=== PATIENT | male | born 1990 | race Two or more races ===

== ENCOUNTER 2021-07-21 09:40 | Inpatient (IN) | payer OTHER ==
[~2021-07-21] VITALS: Ht 170.2 cm; Wt 86.4 kg
[2021-07-21 10:49] LABS: BASOPHILS % (AUTO) 0.4 % (0.0-2.0); EOSINOPHILS % (AUTO) 0.4 % (1.0-6.0); HEMATOCRIT 45.7 % (41-53); HEMOGLOBIN 15.8 g/dL (13.5-17.5); LYMPHOCYTES # (AUTO) 2.4 K/uL (1.0-4.8); LYMPHOCYTES % (AUTO) 23.2 % (22.0-44.0); MEAN CORPUSCULAR HEMOGLOBIN 30.4 pg (26.0-34.0); MEAN CORPUSCULAR HGB CONC 34.7 G/dL (31.0-37.0); MEAN CORPUSCULAR VOLUME 88 fL (80-100); MONOCYTES # (AUTO) 0.6 K/uL (0.1-1.0); MONOCYTES % (AUTO) 5.5 % (2.0-9.0); NEUTROPHILS # (AUTO) 7.2 K/uL (1.8-7.7); NEUTROPHILS % (AUTO) 70.5 % (40.0-70.0); PLATELET COUNT (AUTO) 234 K/uL (150-450); RED BLOOD CELL COUNT(AUTO) 5.21 MIL/uL (4.50-5.90); RED CELL DISTRIBUTION WIDTH 13.4 % (11.5-14.5)
[2021-07-21 10:52] LABS: COVID AG,FIA SOURCE NASOPHARYNGEAL
[2021-07-21 10:58] LABS: ANION GAP 3 mmol/L (8-16); CALCIUM, TOTAL 9.8 mg/dL (8.8-10.5); CARBON DIOXIDE 32 mmol/L (22-29); CHLORIDE 106 mmol/L (98-107); CREATININE 1.12 mg/dL (0.60-1.30); GLOMERULAR FILTR. RATE CALC > 60 mL/min (>60); GLUCOSE,RANDOM 104 mg/dL (70-110); POTASSIUM 4.9 mmol/L (3.5-5.1); SODIUM SERUM 141 mmol/L (136-145); UREA NITROGEN, BLOOD 20 mg/dL (7-18)
[2021-07-21 11:13] LABS: ALANINE AMINOTRANSFERASE 23 U/L (12-78); ALBUMIN 4.3 g/dL (3.4-5.0); ALKALINE PHOSPHATASE 88 U/L (46-116); ASPARTATE AMINOTRANSFERASE 17 U/L (15-37); BILIRUBIN,TOTAL 0.5 mg/dL (0.1-1.0); TOTAL PROTEIN, SERUM 8.4 g/dL (6.4-8.2)
[2021-07-21 11:14] LABS: ACETAMINOPHEN < 2 mcg/mL (10-30)
[2021-07-21] MEDS ORDERED: 0.9% SODIUM CHLORIDE 10 ML SYRINGE IVP PRN ×2 (11:45)
[2021-07-21] MEDS ORDERED: IPRATROPIUM BROMIDE 0.5 MG/2.5 ML NEB SOLUTION NEB PRN (11:45)
[2021-07-21] MEDS ORDERED: DOCUSATE SODIUM 100 MG CAPSULE PO PRN (11:45)
[2021-07-21] MEDS ORDERED: ACETAMINOPHEN 325 MG TABLET PO PRN (11:45)
[2021-07-21] MEDS ORDERED: ONDANSETRON HCL 4 MG/2 ML VIAL IVP PRN ×2 (11:45)
[2021-07-21] MEDS ORDERED: ALBUTEROL SULFATE 2.5 MG/0.5 ML NEB SOLUTION NEB PRN (11:45)
[2021-07-21] MEDS ORDERED: BISACODYL 10 MG RECTAL RECTAL SUPPOSITORY PR PRN (11:45)
[2021-07-21] MEDS ORDERED: MAGNESIUM HYDROXIDE SUSPENSION 30 ML UDCUP PO PRN (11:45)
[2021-07-21 17:28] VITALS: BP 132/79
[2021-07-21] MEDS ORDERED: INFLUENZA VIRUS VACCINE QVS 2021-22 (6MO+)/PF 60 MCG/0.5 ML SYRINGE IM. ONE (18:00)
[2021-07-21 19:47] VITALS: BP 123/64
[2021-07-21] MEDS: MELATONIN 3 MG TABLET PO PRN (20:09)
[2021-07-22 04:26] VITALS: BP 136/55
[2021-07-22 07:32] VITALS: BP 113/62
[2021-07-22] MEDS: FLUoxetine HCL 20 MG CAPSULE PO SCH (10:47)
[2021-07-22 13:27] LABS: HEMOGLOBIN A1C 5.2 % (3.8-5.6)
[2021-07-22 15:29] VITALS: BP 135/63
[2021-07-22] MEDS: ACETAMINOPHEN 325 MG TABLET PO PRN (15:35)
[2021-07-22 19:42] VITALS: BP 120/73
[2021-07-22] MEDS: MELATONIN 3 MG TABLET PO PRN (20:39)
[2021-07-23 04:15] VITALS: BP 122/68
[2021-07-23 07:48] VITALS: BP 124/68
[2021-07-23] MEDS: FLUoxetine HCL 20 MG CAPSULE PO SCH (08:39)
[2021-07-23 15:34] VITALS: BP 125/61
[2021-07-23 18:13] LABS: AMPHET/METH SCREEN,URINE NEGATIVE (NEGATIVE); BARBITURATE SCREEN, URINE NEGATIVE (NEGATIVE); BENZODIAZEPINES SCREEN,URINE NEGATIVE (NEGATIVE); CANNABINOID SCREEN,URINE NEGATIVE (NEGATIVE); COCAINE SCREEN,URINE NEGATIVE (NEGATIVE); METHADONE SCREEN, URINE NEGATIVE (NEGATIVE); OPIATE SCREEN,URINE NEGATIVE (NEGATIVE); PHENCYCLIDINE SCREEN,URINE NEGATIVE (NEGATIVE)
[2021-07-23 19:40] VITALS: BP 126/71
[2021-07-23] MEDS: MELATONIN 3 MG TABLET PO PRN (20:10)
[2021-07-23] MEDS: ACETAMINOPHEN 325 MG TABLET PO PRN (20:13)
[2021-07-24 04:30] VITALS: BP 111/63
[2021-07-24 08:06] VITALS: BP 115/55
[2021-07-24] MEDS: FLUoxetine HCL 20 MG CAPSULE PO SCH (09:12)
[2021-07-24] MEDS ORDERED: FLUO20CA36 PO (11:42)
== END 2021-07-24 12:20 | DRG 881 ==
LOC: EMS 09:40 → 6S 11:39
PROVIDERS: ADMIT Internal Medicine; ATTEND Internal Medicine
DX: F32.9 Major depressive disorder, single episode, unspecified (principal); R45.851 Suicidal ideations; F41.9 Anxiety disorder, unspecified; E11.9 Type 2 diabetes mellitus without complications; I11.9 Hypertensive heart disease without heart failure; J45.909 Unspecified asthma, uncomplicated; Z20.822 Contact with and (suspected) exposure to COVID-19; Z91.51 Personal history of suicidal behavior; Z79.899 Other long term (current) drug therapy
CPT/HCPCS: 80053; 83036; 85025; 99285; G0480; G0481